=== PATIENT | female | born 1990 | race Caucasian/White ===

== ENCOUNTER 2023-10-03 11:37 | Emergency (ER) | payer MEDICAID, SELFPAY ==
[2023-10-03 12:15] VITALS: BP 106/69; PULSE 91; RESP 18; TEMP 36.4; O2SAT 98; BMI 24.3
--- NOTE | 2023-10-03 13:24 | ED_ITS ---
HPI - Headache 2 General: Chief Complaint: Headache Stated Complaint: headache, 14 wks preg Time Seen by Provider: 10/03/23 13:23 Source: patient Mode of arrival: ambulatory Limitations: no limitations History of Present Illness: Patient is a 33-year-old female who presents to the ED today with complaints of a headache. She states she has had a headache for approximately 24 hours. She has been treating with acetaminophen without relief. She is approximately 14 weeks . She has no complaints of nausea or vomiting. No visual changes. No recent fevers. She states her significant other whom she lives with has recently tested positive for COVID. He states he had a fairly significant headache with this illness as well. Patient denies abdominal pain. No urinary symptoms. MD elicited complaint: headache Onset (ago): day(s) Location: diffuse Quality & Timing: dull Exacerbating factors: none Relieving factors: nothing Context: close contacts with similar symptoms (significant other with COVID) Associated symptoms: Deny chest pain, fever(s), lightheadedness, malaise, nausea, rash, syncope or vomiting Treatments prior to arrival: acetaminophen Review of Systems 2 Const: Denies: fever(s), chills, body aches, fatigue or malaise Eyes: Denies: change in vision, blurry vision, photophobia, floaters or seeing flashes Card: Denies: chest pain, palpitations, irregular heart rhythm, lightheadedness, syncope or dyspnea on exertion Resp: Denies: dyspnea, productive cough or pain on inspiration GI: Denies: abdominal pain, nausea, vomiting, heartburn or diarrhea : Denies: dysuria Musc: Denies: neck pain, back pain or joint pain Skin/Breast: Denies: rash Neuro: Reports: headache(s); Denies: numbness in extremities, weakness in extremities, sensory changes or dizziness Physical Exam 2 Const: COMMON NORMALS: no acute distress, average body habitus, patient oriented x3, no limitations, healthy appearing, alert and well nourished G ENERAL APPEARANCE: cooperative ORIENTATION/CONSCIOUSNESS: Yes awake, Yes oriented to person, Yes oriented to place and Yes oriented to time HENMT: COMMON NORMALS: normocephalic, atraumatic, hearing grossly normal bilaterally, EAC's normal, TM's normal bilaterally, Normal external nose present, Normal nasal mucous membranes and turbinates present, moist oral mucous membranes and oropharynx normal HEAD & SCALP: normal to inspection, normocephalic and atraumatic FACE & SINUS: normal facial exam NOSE: Normal external nose present and Normal nasal mucous membranes and turbinates present EXTERNAL AUDITORY CANAL: EAC's normal TYMPANIC MEMBRANE: TM's normal bilaterally MOUTH: Normal oral and palatal mucosa present and lip normal T HROAT: posterior oropharynx normal Eye: GENERAL EYE: appearance normal, both eyes and all related structures Neck/C-Spine: COMMON NORMALS: full ROM, no lymphadenopathy, supple and no meningeal signs Chest: COMMONS NORMALS: normal inspection of the chest Resp: COMMON NORMALS: normal respiratory effort and clear to auscultation bilaterally AUSCULTATION: clear to auscultation bilaterally Cardio: COMMON NORMALS: regular rate and regular rhythm RATE: regular rate RHYTHM: regular rhythm : COMMON NORMALS: Yes no CVA tenderness BLADDER/KIDNEY EXAM: Yes no CVA tenderness Back/Pelvis: COMMON NORMALS: no CVA tenderness Extremity: GENERAL: Yes normal exam except as noted Neuro: ADRIANA COMA SCALE: document GCS findings Adriana coma scale eye opening: Spontaneous Adriana coma scale verbal response: Orientated [place] coma scale motor response: Obey commands Adriana coma scale total score: 15 COMMON NORMALS: patient oriented x3 SENSORIUM/ORIENTATION: Yes alert, Yes oriented to person, Yes oriented to place and Yes oriented to time MENINGEAL SIGNS: Y es no meningeal signs Skin: COMMON NORMALS: no rashes or lesions noted GENERAL SKIN EXAM: no rashes or lesions noted Course 2 Vital Signs: Vital signs: Vital Signs Temperature 97.6 F 10/03/23 12:15 Pulse Rate 90 10/03/23 15:39 Respiratory Rate 14 10/03/23 14:57 Blood Pressure 103/60 10/03/23 15:39 Pulse Oximetry 99 10/03/23 15:39 Oxygen Delivery Me thod Room Air 10/03/23 14:57 MDM - Headache Medical Decision Making Patient here with a complaint of a headache over the past day. She has had positive COVID exposure. COVID antigen obtained and pending. Blood work is unremarkable. She states her headache is improved after IV Benadryl and Reglan. She feels well to go home. We will reach out to patient if her COVID comes back positive. Lab Data I reviewed the patient's lab results. 10/03/23 13:46 10/03/23 13:46 Laboratory Results WBC 3.19 10^3/uL (3.29-11.43) L 10/03/23 13:46 RBC 4.38 10^6/uL (3.85-5.65) 10/03/23 13:46 Hgb 13.30 g/dL (11.27-16.99) 10/03/23 13:46 Hct 38.7 % (36-47) 10/03/23 13:46 MCV 88.4 fl (85-98) 10/03/23 13:46 MCH 30.4 pg (27-33) 10/03/23 13:46 MCHC 34.4 g/dL (30-55) 10/03/23 13:46 RDW 12.2 % (12.1-15.1) 10/03/23 13:46 Plt Count 155 10^3/cmm (157-399) L 10/03/23 13:46 MPV 10.6 fL (7.4-10.4) H 10/03/23 13:46 Neut % (Auto) 59.9 % 10/03/23 13:46 Lymph % (Auto) 24.8 % 10/03/23 13:46 [place] % (Auto) 14.4 % 10/03/23 13:46 Eos % (Auto) 0.3 % 10/03/23 13:46 Baso % (Auto) 0.3 % 10/03/23 13:46 Neut # (Auto) 1.91 10^3/uL (1.8-7.7) 10/03/23 13:46 Lymph # (Auto) 0.8 10^3/uL (0.8-4.8) 10/03/23 13:46 [place] # (Auto) 0.5 10^3/uL (0.2-0.9) 10/03/23 13:46 Eos # (Auto) 0.0 10^3/uL (0.0-0.8) 10/03/23 13:46 Baso # (Auto) 0.0 10^3/uL (0.0-0.1) 10/03/23 13:46 Nucleated RBC % (auto) 0 % 10/03/23 13:46 Nucleated RBCs # 0.0 /100WBC 10/03/23 13:46 Sodium 132 mmol/L (136-145) L 10/03/23 13:46 Potassium 3.6 mmol/L (3.5-5.1) 10/03/23 13:46 Chloride 99 mmol/L (98-107) 10/03/23 13:46 Carbon Dioxide 21 mmol/L (22-29) L 10/03/23 13:46 Anion Gap 15.6 (5-19) 10/03/23 13:46 BUN 6 mg/dL (6-20) 10/03/23 13:46 Creatinine 0.4 mg/dL (0.5-0.9) L 10/03/23 13:46 GFR Calculation 183.8 mL/min (90-130) H 10/03/23 13:46 Glucose 79 mg/dL (65-115) 10/03/23 13:46 Calculated Osmolality 271 mOsm/kg (285-295) L 10/03/23 13:46 Calcium 9.2 mg/dL (8.5-10.5) 10/03/23 13:46 Total Bilirubin 0.3 mg/dL (0.15-1.2) 10/03/23 13:46 AST 18 U/L (0-32) 10/03/23 13:46 ALT 11 U/L (0-33) 10/03/23 13:46 Alkaline Phosphatase 59 U/L (35-105) 10/03/23 13:46 Total Protein 7.1 g/dL (6.6-8.7) 10/03/23 13:46 Albumin 3.9 g/dL (3.5-5.2) 10/03/23 13:46 Globulin 3.2 g/dL (1.3-4.6) 10/03/23 13:46 No radiology studies performed this visit Discharge Plan Discharge Patient Disposition: Home Clinical Impression: Headache Qualifiers: Headache type: unspecified Headache chronicity pattern: acute headache I ntractability: not intractable Qualified Code(s): R51.9 - Headache, unspecified Condition: Stable Prescriptions: No Action No Known Home Medications Discharge Orders: Discharge ED (Routine); Ordered 10/03/23 Ordered By: Meli Monterroso Referrals: Nayeli Restrepo MD [Primary Care Provider] - Activity Restrictions/Additional Instructions: As we discussed I will contact you later today if your COVID result comes back positive. 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
[2023-10-03 13:53] LABS: Basophils % 0.3 %; Eosinophils % 0.3 %; Hematocrit 38.7 % (36-47); Lymphocytes # 0.8 10^3/uL (0.8-4.8); Lymphocytes % 24.8 %; Mean Corpuscular HGB Conc 34.4 g/dL (30-55); Mean Corpuscular Hemoglobin 30.4 pg (27-33); Mean Corpuscular Volume 88.4 fl (85-98); Mean Platelet Volume 10.6 fL (7.4-10.4); Monocytes # 0.5 10^3/uL (0.2-0.9); Monocytes % 14.4 %; Neutrophils # 1.91 10^3/uL (1.8-7.7); Neutrophils % 59.9 %; Nucleated Red Blood Cells % 0 %; Platelet Count 155 10^3/cmm (157-399); Red Blood Count 4.38 10^6/uL (3.85-5.65); Red Cell Distribution Width 12.2 % (12.1-15.1); White Blood Count 3.19 10^3/uL (3.29-11.43)
[2023-10-03 14:20] LABS: Alanine Aminotransferase 11 U/L (0-33); Albumin Level 3.9 g/dL (3.5-5.2); Alkaline Phosphatase 59 U/L (35-105); Anion Gap 15.6 (5-19); Aspartate Amino Transferase 18 U/L (0-32); Blood Urea Nitrogen 6 mg/dL (6-20); Calcium 9.2 mg/dL (8.5-10.5); Carbon Dioxide 21 mmol/L (22-29); Chloride 99 mmol/L (98-107); Globulin 3.2 g/dL (1.3-4.6); Glomerular Filtration Rate 183.8 mL/min (90-130); Glucose 79 mg/dL (65-115); Osmolality Calculated 271 mOsm/kg (285-295); Potassium 3.6 mmol/L (3.5-5.1); Sodium 132 mmol/L (136-145); Total Bilirubin 0.3 mg/dL (0.15-1.2); Total Protein 7.1 g/dL (6.6-8.7)
[2023-10-03] MEDS: metoclopramide 5 mg/mL SDV 2 mL 10 MG IVP (14:56)
[2023-10-03] MEDS: diphenhydrAMINE 50 mg/mL SDV 1mL 25 MG IVP (14:56)
[2023-10-03 14:57] VITALS: BP 116/72; PULSE 90; RESP 14; O2SAT 98
[2023-10-03 15:39] VITALS: BP 103/60; PULSE 90; O2SAT 99
[2023-10-03 16:01] LABS: SARS Covid-2 Antigen negative (Negative)
== END 2023-10-03 15:40 | disposition home or self-care (01) ==
PROVIDERS: Emergency Provider Physician Assistant; PCP Family Medicine
DX: R51.9 Headache, unspecified (principal); Z11.52 Encounter for screening for COVID-19
CPT/HCPCS: 36415; 80053; 85025; 87426; 96374; 96375; 99284; J1200; J2765

== ENCOUNTER 2024-03-06 13:53 | Outpatient (CLI) | payer BC, MEDICAID, SELFPAY ==
[2024-03-06] VITALS (13 sets, daily range): BP systolic 110–130; BP diastolic 62–74; PULSE 75–103; BMI 29.2
[2024-03-06] MEDS: terbutaline 1 mg/mL INJ 0.25 MG SUBCUT (16:49)
--- NOTE | 2024-03-06 17:05 | PM.SDS ---
Short Stay Summary Providers Date of Admit/Discharge: 03/10/24 Attending Provider: Nayeli Restrepo MD Primary Care Provider: Nayeli Restrepo MD Chief Complaint: contractions HPI History of Present Illness Jacquelin Amaya is a 33 year old female at 36-week day gestation who presented to labor and delivery complaining of contractions. She states she has been mika since last night. The contractions are mostly in her back. She also has some continuous lower back pain. Upon admission she denied any bleeding or loss of fluid. She had good movement. Home Meds/Allergies Home Medications and Allergies Home Medications Medication Instructions Recorded Confirmed Type No Known Home Medications 10/03/23 03/06/24 History Allergies Allergy/AdvReac Type Severity Reaction Status Date / Time No Known Allergies Allergy Unverified 10/03/23 14:46 PFSH Acute Female Reproductive History: : 5 Vitals/I&O/Wt Last Vital Signs Pulse 78 03/06/24 16:48 BP 115/66 03/06/24 16:48 Weight last 48 hrs Weight 75.07 kg Physical Exam Narrative: Alert and oriented, resting comfortable in bed, abdomen gravid and nontender, no active vaginal bleeding, scant amount dark red blood in the vaginal vault and mild amount on the check underlying the patient. Cervix 2 cm 60% effaced very anterior and soft. Hospital Course Hospital Course The patient was monitored on OB. heart tones were reassuring with moderate variability positive accelerations no decelerations. Patient was found to be mika every 2 to 5 minutes. She did not make any cervical telephone exchange operator the course of 2.5 hours however when she had her vaginal checks she had mild to moderate bloody show. Nursing was concerned so I came to evaluate the patient. She had no active bleeding upon my examination. There was a small amount of dark red blood in the vaginal vault. Her cervix was still 2 cm 60% effaced and -2 station very anterior presentation. head was vertex and ballotable. There is no bleeding or fluid return with my examination. The patient had started to feel the contractions become more intense so she was given 1 dose of terbutaline to try and calm them down. We have sent a urine for UA. She just recently finished about 30 ounces of water. The patient's contractions spaced out significantly and became less strong after the terbutaline. She did not have any further bright red bleeding. She was discharged home in stable condition with early labor precautions SSS Data Data Completed and Pending: Pending at discharge Category Date Time Status UASCOPE [Urinalys is and Microscopic ] Stat Lab 03/06/24 17:05 Ordered Discharge Plan Discharge Patient Disposition: Home Prescriptions: No Action No Known Home Medications Discharge Orders: Discharge Order (Routine); Ordered 03/06/24 Ordered By: Nayeli Restrepo Diet: Usual diet Activity: Increase activity as tolerated Discharge Date/Time: 03/06/24 18:35 Attestations Medical Necessity Statement*: labor management Time Spent in Patient Care*: greater than 30 min Quality Metrics Clinical Quality Measures: [ No reported AMI, CVA or VTE this stay] Coding Level of Care Code Acute Code for Chg Fwd
[2024-03-06 17:42] LABS: Bilirubin Urine Neg (Negative); Blood Urine Neg (Negative); Glucose Urine UA Norm (Normal); Ketones Urine Negative (Negative); Leukocyte Esterase Urine 2+ (Negative); Nitrate Urine Negative (Negative); Protein Urine Neg (Negative); Specific Gravity, Urine 1.015 (1.005-1.030); Urine Appearance Cloudy (CLEAR); Urine Color Yellow (Yellow); Urobilinogen Urine 1 mg/dL (Negative); pH Urine 6.5 (5-7)
[2024-03-06 17:45] LABS: Add Urine Culture? Yes; Bacteria Urine 2+ /hpf; Mucus Urine 3+ /hpf; RBC Urine 0-4 /hpf (0-2); Squamous Epithelial Cell Urine 15-25 /hpf (0-5)
[2024-03-06] MEDS: cefTRIAXone 1,000 MG in lidocaine 1% 2.1 ML 1 MG IM (18:28)
== END 2024-03-06 18:35 | disposition home or self-care (01) ==
LOC: OPOB 13:54 → OBGYN 13:55
PROVIDERS: PCP Family Medicine; Visit Provider Family Medicine
DX: O47.03 False labor before 37 completed weeks of gestation, third trimester (principal); Z3A.36 36 weeks gestation of pregnancy
CPT/HCPCS: 59025; 81001; 87086; 96372; 99211; J0696; J3105

== ENCOUNTER 2024-03-18 20:49 | Outpatient (CLI) | payer BC, MEDICAID, SELFPAY ==
[2024-03-18] VITALS (8 sets, daily range): BP systolic 108–125; BP diastolic 67–75; PULSE 83–96; TEMP 35.2–35.5; BMI 29.9
== END 2024-03-18 22:37 | disposition home or self-care (01) ==
LOC: OPOB 20:49 → OBGYN 20:50
PROVIDERS: PCP Family Medicine; Visit Provider Family Medicine
DX: O26.899 Other specified pregnancy related conditions, unspecified trimester (principal); Z3A.00 Weeks of gestation of pregnancy not specified; R10.9 Unspecified abdominal pain
CPT/HCPCS: 59025; 99211

== ENCOUNTER 2024-03-26 09:51 | Inpatient (IN) | payer BC, MEDICAID, SELFPAY ==
[2024-03-26] VITALS (111 sets, daily range): BP systolic 89–151; BP diastolic 46–93; PULSE 67–200; TEMP 36.1; O2SAT 82–100; BMI 30.1
[2024-03-26 09:17] LABS: Basophils % 0.3 %; Eosinophils # 0.1 10^3/uL (0.0-0.8); Hematocrit 32.3 % (36-47); Lymphocytes % 33.3 %; Mean Corpuscular HGB Conc 32.2 g/dL (30-55); Mean Corpuscular Hemoglobin 25.4 pg (27-33); Mean Corpuscular Volume 78.8 fl (85-98); Mean Platelet Volume 11.8 fL (7.4-10.4); Monocytes # 0.5 10^3/uL (0.2-0.9); Monocytes % 8.7 %; Neutrophils # 3.38 10^3/uL (1.8-7.7); Neutrophils % 55.2 %; Nucleated Red Blood Cells % 0 %; Platelet Count 141 10^3/cmm (157-399); Red Cell Distribution Width 13.2 % (12.1-15.1); White Blood Count 6.12 10^3/uL (3.29-11.43)
[2024-03-26] MEDS: dextrose 5%-lactated ringers 1,000 ML 125 ML IV ×2 (09:30→17:33)
[2024-03-26] MEDS: oxytocin 30 UNIT/500 ML BAG IV (09:30)
[2024-03-26 11:18] LABS: Amphetamines Screen Urine Negative (Negative); Barbiturates Screen Urine Negative (Negative); Benzodiazepines Screen Urine Negative (Negative); Cocaine Screen Urine Negative (Negative); Opiate Screen Urine Negative (Negative); PCP Screen Urine Negative (Negative); THC Screen Urine Negative (Negative)
[2024-03-26] MEDS: lactated ringers 1,000 ML 999 ML IV (16:14)
--- NOTE | 2024-03-26 16:18 | PM.OPHPUD ---
Labor & Delivery H&P Update Date of Procedure: March 26, 2024 Date H&P Performed: 04/18/24 Admission Diagnosis: IUP at 39 weeks gestation Desired permanent surgical sterilization Primary indication for procedure: Patient requested induction Planned procedure: Induction of labor and delivery with bilateral tubal ligation
--- NOTE | 2024-03-26 17:17 | P.ANESASSM_ITS ---
Pre-Anesthetic Assessment Height/Weight: Height 1.6 m Weight 77.111 kg Temp Pulse BP O2 Del Method 97.0 F L 100 113/71 Room Air 03/26/24 09:06 03/26/24 17:05 03/26/24 17:05 03/26/24 08:49 Preop Diagnosis: labor pains epidural Was Beta Daisy taken within 24 hours: N/A Was Clonidine taken within 24 hours: N/A Exam alert, oriented x 3, clear to auscultation bilaterally and regular rate & rhythm Airway Submandibular: within normal limits Cervical ROM: within normal limits Mallampati: Class II Dentition: full Pulmonary None reported CV/HEM None reported None reported Hepatic None reported GI Gastroesophageal Reflux Disease Metabolic None reported Musc/skel None reported Neuropsych None reported Anesthetic Plan ASA status: 2 Anesthesia: Regional (specify below) Risk of > 500 ml blood loss (7ml/kg in children): No Medications/Allergies Home Medications Medication Instructions Recorded Confirmed Last Taken Type No Known Home Medications 10/03/23 03/26/24 Unknown History Allergies Allergy/AdvReac Type Severity Reaction Status Date / Time No Known Allergies Allergy Unverified 10/03/23 14:46 Current Medications Generic Name Dose Route Start Last Admin Trade Name Freq PRN Reason Stop Dose Admin Dextrose/Lactated Ringer's 1,000 mls @ 125 mls/hr 03/26/24 09:00 03/26/24 16:14 Dextrose 5%-Lactated Ringers IV 0 mls/hr .Q8H GIGI Infusion Oxytocin 30 unit in 500 mls @ 1 mls/hr 03/26/24 09:00 03/26/24 14:37 Pitocin IV 17 milliunit/min .Q24H GIGI 17 mls/hr Titration Protocol 1 MILLIUNIT/MIN Lactated Ringer's 1,000 mls @ 999 mls/hr 03/26/24 15:24 03/26/24 16:14 Lactated Ringers IV 999 mls/hr .Q1H1M PRN Administration See label comments PFSH Anesthesia Female Reproductive History : 5 Data Anesthesia 03/26/24 08:35 Short CBC 03/26/24 Range/Units 08:35 WBC 6.12 (3.29-11.43) 10^3/uL Hgb 10.40 L (11.27-16.99) g/dL Hct 32.3 L (36-47) % MCV 78.8 L (85-98) fl Plt Count 141 L (157-399) 10^3/cmm Neut % (Auto) 55.2 % Neut # (Auto) 3.38 (1.8-7.7) 10^3/uL Blood Bank 03/26/24 08:35 Blood Type A Positive Rho(D) Type Rh positive Antibody Screen Negative Cardiac Studies: 2 No Data to Display
[2024-03-26] MEDS: ROPivacaine syringe 100 MG/50 ML SYRINGE 10 MG EPIDURAL ×2 (17:34→20:44)
--- NOTE | 2024-03-26 17:39 | P.ANES_ITS ---
Anesthesia Procedures Procedure/Date: 03/26/24 epidural Procedure Narrative: epidural complete, bolus given, epidural pump initiated with LIBRARY MEDIA SPECIALIST education given, vitals taken during procedure and satisfactory throughout, patient admits to decrease pain, report of procedure to OB RN Epidural: Time Out Performed: Yes Consents Signed: Procedure Consent Consent: requested by attending/covering physician, from patient, risks and benefits reviewed and patient agrees to proceed Lumbar Level: L3-L4 Ep idural position: sitting Epidural procedure: sterile prep of area, 1% lidocaine to numb the area (3 mL), 18 g needle, negative for paresthesia passed, neg for paresthesia, test dose given, 1.5% xylocaine 1:200k epi (5 mL), 0.2% Ropivacaine bolus ml (5 mL), placed PCEA, no systemic response, sterile dressing applied, L.U.D. no apparent complications and 0.2% Ropiavacaine @ mls/hr (13 mL/hr)
[2024-03-26] MEDS: miSOPROStol 200 mcg Tablet 800 MCG PR (21:20)
[2024-03-26] MEDS: oxytocin 30 UNIT/500 ML BAG 600 UNIT IV (21:49)
[2024-03-27] VITALS (17 sets, daily range): BP systolic 94–113; BP diastolic 57–69; PULSE 64–99; RESP 16–20; TEMP 36.2–36.6; O2SAT 95–99
--- NOTE | 2024-03-27 08:15 | ANE.PACU2 ---
Inpatient post-anesthesia follow up: Airway intact: Yes Vital signs: Temperature 98.0 F Pulse Rate 82 Respiratory Rate 16 Blood Pressure 99/72 Pulse Oximetry 99 Oxygen Delivery Me thod Room Air Oxygen Flow Rate Fraction of Inspir ed Oxygen Hydration adequate: Yes Nausea and vomiting: No Pain level: 1 Mental status: Baseline Epidural Start/End: Epidural Start Date: 03/26/24 Epidural Start Time: 17:25 Epidural End Date: 03/26/24 Epidural End Time: 21:36
--- NOTE | 2024-03-27 10:41 | P.HP_ITS ---
Providers/Chief Complaint 2 Admitting Physician: Nayeli Restrepo MD Primary Care Provider: Nayeli Restrepo MD Chief Complaint: IOL History of Present Illness Jacquelin Amaya is a 33 year old female who delivered via last evening. She wishes to undergo permanent surgical sterilization. Review of Systems 2 Narrative: no fever, chills, no contractions. 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 Vitals/I&O/Wt Last Vital Signs Temp 97.9 F 03/27/24 07:50 Pulse 93 03/27/24 07:50 Resp 16 03/27/24 07:50 BP 106/67 03/27/24 07:50 Pulse Ox 92 03/26/24 21:14 O2 Del Method Room Air 03/26/24 08:49 03/26/24 03/27/24 03/27/24 22:59 06:59 14:59 Intake Total 1126.000 / 1180.183 Balance 1126.000 / 1180.183 Weight last 48 hrs Weight 77.111 kg Physical Exam 2 Narrative: A&O, RRR, CTA bilaterally, abdomen soft, fundus firm and U-2. trace edema. Urinary Catheter Management: Mcduffie: Cath Placed During This Visit: yes, but has since been removed by the nurse Reason for Continuing Indwelling Catheter: Decision to DC Catheter Urinary Catheter Date of Insertion: 03/26/24 Urinary Catheter Time of Insertion: 18:17 Date Urinary Catheter Removed: 03/26/24 Time Urinary Catheter Discontinued: 21:00 Data 03/27/24 09:39 A&P Assessment and plan (1) (normal spontaneous vaginal delivery): routine PP care (2) Sterilization consult: scheduled for BTL today. Attestations 2 Medical Necessity Statement*: routine PP care Coding Level of Care Code Acute Code for Chg Fwd Diagnoses (normal spontaneous vaginal delivery) O80 Sterilization consult Z30.09
[2024-03-27] MEDS: lactated ringers 1,000 ML 999 ML IV (11:06)
--- NOTE | 2024-03-27 11:51 | P.ANESASSM_ITS ---
Pre-Anesthetic Assessment Height/Weight: Height 1.6 m Weight 77.111 kg Temp Pulse Resp BP Pulse Ox O2 Del Method 97.2 F L 81 17 108/69 99 Room Air 03/27/24 11:39 03/27/24 11:39 03/27/24 11:39 03/27/24 11:39 03/27/24 11:39 03/27/24 11:39 Preop Diagnosis: labor pains Operation Date: 03/27/24 12:00 Proposed Procedures p Bilateral Tubal Ligation(Bilateral) - Nayeli Restrepo MD Operation Date: 03/27/24 12:00 Proposed Procedures p Post Bilateral Tubal Ligation(Bilateral) - Nayeli Restrepo MD Familial anesthetic complications: None Was Beta Daisy taken within 24 hours: N/A Was Clonidine taken within 24 hours: N/A Last intake: Intake Last Liquid Date 03/26/24 Last Liquid Time 22:30 Last Solid Date 03/26/24 Last Solid Time 22:35 Social No alcohol and No tobacco Exam alert, oriented x 3, clear to auscultation bilaterally and regular rate & rhythm Airway Mallampati: Class I Dentition: full Anesthetic Plan ASA status: 1 Anesthesia: General Other: RSI Risk of > 500 ml blood loss (7ml/kg in children): No Medications/Allergies Home Medications Medication Instructions Recorded Confirmed Last Taken Type No Known Home Medications 10/03/23 03/26/24 Unknown History Allergies Allergy/AdvReac Type Severity Reaction Status Date / Time No Known Allergies Allergy Unverified 10/03/23 14:46 Current Medications Generic Name Dose Route Start Last Admin Trade Name [place] PRN Reason Stop Dose Admin Oxytocin 30 unit in 500 mls @ 600 mls/hr 03/26/24 08:48 03/26/24 21:49 Pitocin IV 600 mls/hr .Q50M PRN 600 mls/hr After delivery of infant Administration Protocol Dextrose/Lactated Ringer's 1,000 mls @ 125 mls/hr 03/26/24 09:00 03/26/24 17:33 Dextrose 5%-Lactated Ringers IV 125 mls/hr .Q8H GIGI Administration Oxytocin 30 unit in 500 mls @ 1 mls/hr 03/26/24 09:00 03/26/24 21:25 Pitocin IV 999 milliunit/min .Q24H GIGI 999 mls/hr Titration Protocol 1 MILLIUNIT/MIN Lactated Ringer's 1,000 mls @ 999 mls/hr 03/26/24 15:24 03/27/24 11:06 Lactated Ringers IV 999 mls/hr .Q1H1M PRN Administration See label comments Ropivacaine 100 mg in 50 mls @ 10 mls/hr 03/26/24 15:30 03/26/24 21:21 Naropin Syringe EPIDURAL Infused .Q5H GIGI Infusion PFSH Anesthesia Female Reproductive History : 5 Data Anesthesia 03/27/24 09:39 Short CBC 03/26/24 03/27/24 Range/Units 08:35 09:39 WBC 6.12 (3.29-11.43) 10^3/uL Hgb 10.40 L 9.30 L (11.27-16.99) g/dL Hct 32.3 L 32.0 L (36-47) % MCV 78.8 L (85-98) fl Plt Count 141 L (157-399) 10^3/cmm Neut % (Auto) 55.2 % Neut # (Auto) 3.38 (1.8-7.7) 10^3/uL Blood Bank 03/26/24 08:35 Blood Type A Positive Rho(D) Type Rh positive Antibody Screen Negative Cardiac Studies: 2 No Data to Display
[2024-03-27] MEDS: lidocaine-epi 2% PF 1:200,000 20 mL SDV XX (12:26)
[2024-03-27] MEDS: fentaNYL 50 mcg/mL INJ 2mL IVP (13:08)
--- NOTE | 2024-03-27 13:32 | ANE.PACU2 ---
Inpatient post-anesthesia follow up: Airway intact: Yes Vital signs: Temperature 97.9 F Pulse Rate 79 Respiratory Rate 17 Blood Pressure 110/69 Pulse Oximetry 98 Oxygen Delivery Me thod Room Air Oxygen Flow Rate Fraction of Inspir ed Oxygen Hydration adequate: Yes Nausea and vomiting: No Pain level: 1 Mental status: Baseline
--- NOTE | 2024-03-27 13:53 | PC.NURSE ---
PATIENT BACK FROM OR VIA GURNEY, MOVED TO BED WITHOUT DIFFICULTY. HAS CALL LIGHT WITH IN EASY REACH.
[2024-03-27] MEDS: HYDROcodone-acetaminophen 5-325 mg Tablet PO (14:13)
[2024-03-27] MEDS: ibuprofen 800 mg tablet PO ×2 (14:13→20:30)
--- NOTE | 2024-03-27 17:03 | PM.DELIVERY ---
Delivery Note: Date of delivery: March 26, 2024 Estimated blood loss (mL): 350 Delivery: This is a 33-year-old G5, P4 at 39 weeks 0 days gestation who was here for an elective induction. Her cervix was favorable so she was started on Pitocin. She underwent artificial rupture of membranes with a copious amount of clear fluid. She was GBS negative. Rupture of membranes was approximately 4 hours prior to delivery. She had a normal spontaneous vaginal delivery of a viable female infant weight 3170 g, 7 pounds 0 ounces, Apgars 8 and 9 over an intact perineum. The infant was suctioned at delivery and placed on the mother's chest. The cord was clamped and cut. The placenta was delivered grossly intact and normal to inspection. There were no vaginal lacerations. Mother had a steady stream of vaginal bleeding after delivery and was given 800 mcg of Cytotec rectally. Mother and infant were doing well after delivery. Coding Level of Care Code Acute Code for Chg [place]
--- NOTE | 2024-03-27 17:08 | PM.OP ---
Operative Report Date of procedure: March 27, 2024 Pre-op diagnosis: Desired permanent surgical sterilization Procedure done: bilateral tubal ligation Specimens removed/disposition: Segments of right and left fallopian tubes Pathology: Segments of right and left fallopian tubes Surgeon: Nayeli Restrepo MD Estimated blood loss (mL): 2 IV fluids (mL): 700 Complications: None Procedure: After informed consent the patient was taken to the OR where general anesthesia was administered. She was prepped and draped in normal sterile fashion in dorsal supine position. A curvilinear infraumbilical incision was made sharply using a 10 blade. The incision was then carried through bluntly to the fascia using a hemostat. The fascia was grasped with Allis clamps and entered sharply using the Metzenbaums. The incision site was manually stretched. The left fallopian tube was then grasped with a [place] and brought into the operative field. Fimbria were identified. A distal portion of the tube was ligated and excised. A portion of the tube was sent to pathology. Tubal ostia were visible. The cut portions of the tube were coagulated using the Bovie and then returned to the abdomen. The right fallopian tube was then grasped with a [place] and brought into the operative field. Fimbria were identified. A distal portion of the tube was ligated and excised. Segment of the tube was sent to pathology. Cut portions of the tube were coagulated using the Bovie. The cut portions of the tube were then returned to the abdomen. The peritoneum and fascia was then reapproximated using a 0 Vicryl in a running fashion. The skin was then reapproximated using 4-0 Vicryl in a running fashion. 15 mL of 1% lidocaine was injected circumferentially around the incision site. Patient was awakened in the OR and went to recovery in good condition.
[2024-03-27] MEDS: docusate sodium 100 mg Capsule PO (20:30)
[2024-03-28 05:22] VITALS: BP 91/48; PULSE 75; RESP 16; TEMP 36.7; O2SAT 98
[2024-03-28] MEDS: PRENATAL VIT NO.130/IRON/FOLIC 1 EACH TABLET PO (09:49)
[2024-03-28] MEDS: docusate sodium 100 mg Capsule PO (09:49)
[2024-03-28] MEDS: ibuprofen 800 mg tablet PO (09:50)
[2024-03-28 11:00] VITALS: BP 95/56; PULSE 78; RESP 16; TEMP 36.7; O2SAT 99
--- NOTE | 2024-03-28 11:48 | PM.DCS ---
Discharge Providers Date of Admission: 03/26/24 09:51 Date of Discharge: March 28, 2024 Attending Provider at Admission: Nayeli Restrepo MD Attending Provider at Discharge: Nayeli Restrepo MD Primary Care Provider: Nayeli Restrepo MD Diagnoses at Discharge Discharge Diagnosis (1) (normal spontaneous vaginal delivery): Status: Acute (2) Sterilization consult: Status: Acute Reason for Visit Reason for Visit: IOL Hospital Course Hospital Course This is a 33-year-old G5 now P5 who was admitted for an elective induction. She had a normal spontaneous vaginal delivery of a viable female infant. On day #1 she underwent a bilateral tubal ligation. She is now postop day #1 and is doing well. She is ambulating, tolerating a regular diet, has minimal abdominal discomfort and is comfortable with discharge home. Physical Exam Narrative: Alert and oriented, sitting up in bed with the infant, heart regular rate and rhythm, lungs clear to auscultation bilaterally, abdomen is soft with appropriate postoperative tenderness, incision is clean dry and intact, extremities have 1+ edema but no calf tenderness Urinary Catheter Management: Mcduffie: Cath Placed During This Visit: yes, but has since been removed by the nurse Reason for Continuing Indwelling Catheter: Decision to DC Catheter Urinary Catheter Date of Insertion: 03/26/24 Urinary Catheter Time of Insertion: 18:17 Date Urinary Catheter Removed: 03/26/24 Time Urinary Catheter Discontinued: 21:00 Discharge Data Studies Completed and Pending Pending at discharge Category Date Time Status Pathology: Surgical [PTH] Routine Pth 03/27/24 12:45 Received Laboratory Results WBC 6.12 10^3/uL (3.29-11.43) 03/26/24 08:35 RBC 4.10 10^6/uL (3.85-5.65) 03/26/24 08:35 Hgb 9.30 g/dL (11.27-16.99) L 03/27/24 09:39 Hct 32.0 % (36-47) L 03/27/24 09:39 MCV 78.8 fl (85-98) L 03/26/24 08:35 MCH 25.4 pg (27-33) L 03/26/24 08:35 MCHC 32.2 g/dL (30-55) 03/26/24 08:35 RDW 13.2 % (12.1-15.1) 03/26/24 08:35 Plt Count 141 10^3/cmm (157-399) L 03/26/24 08:35 MPV 11.8 fL (7.4-10.4) H 03/26/24 08:35 Neut % (Auto) 55.2 % 03/26/24 08:35 Lymph % (Auto) 33.3 % 03/26/24 08:35 [place] % (Auto) 8.7 % 03/26/24 08:35 Eos % (Auto) 2.0 % 03/26/24 08:35 Baso % (Auto) 0.3 % 03/26/24 08:35 Neut # (Auto) 3.38 10^3/uL (1.8-7.7) 03/26/24 08:35 Lymph # (Auto) 2.0 10^3/uL (0.8-4.8) 03/26/24 08:35 [place] # (Auto) 0.5 10^3/uL (0.2-0.9) 03/26/24 08:35 Eos # (Auto) 0.1 10^3/uL (0.0-0.8) 03/26/24 08:35 Baso # (Auto) 0.0 10^3/uL (0.0-0.1) 03/26/24 08:35 Nucleated RBC % (auto) 0 % 03/26/24 08:35 Nucleated RBCs # 0.0 /100WBC 03/26/24 08:35 Urine Opiates Screen Negative ng/mL (Negative) 03/26/24 10:52 Ur Barbiturates Screen Negative ng/mL (Negative) 03/26/24 10:52 Ur Phencyclidine Scrn Negative ng/mL (Negative) 03/26/24 10:52 Ur Amphetamines Screen Negative ng/mL (Negative) 03/26/24 10:52 U Benzodiazepines Scrn Negative ng/mL (Negative) 03/26/24 10:52 Urine Cocaine Screen Negative ng/mL (Negative) 03/26/24 10:52 U Marijuana (THC) Screen Negative ng/mL (Negative) 03/26/24 10:52 Blood Type A Positive 03/26/24 08:35 Rho(D) Type Rh positive 03/26/24 08:35 Antibody Screen Negative 03/26/24 08:35 Vitals Last Vital Signs Temp 98.1 F 03/28/24 11:00 Pulse 78 03/28/24 11:00 Resp 16 03/28/24 11:00 BP 95/56 03/28/24 11:00 Pulse Ox 99 03/28/24 11:00 O2 Del Method Room Air 03/28/24 11:00 Discharge Plan Discharge Patient Disposition: Home Condition: Stable Prescriptions: No Action No Known Home Medications Discharge Orders: Discharge Order (Routine); Ordered 03/28/24 Ordered By: Nayeli Restrepo Referrals: Nayeli Restrepo MD [Primary Care Provider] - 4-7 days Discharge Diet: Usual diet Discharge Activity: Limit activity as instructed Patient Instructions: Depression (DC), Opioid Safety (GEN), Preeclampsia and Eclampsia After Delivery (GEN), Tubal Ligation (DC), Hemorrhage (DC), OB Discharge Report, OB Food/Drug Interaction Guide, OB Care at Home, Opioid Safety, OB Vaginal Deliveries, Abnormal Bleeding Activity Restrictions/Additional Instructions: Nothing per vagina for 6 weeks. No lifting greater than 10 pounds for 2 weeks. Keep incision clean and dry. Discharge Attestations Time Spent in Discharge Care*: less than 30 min Quality Metrics Clinical Quality Measures [ No reported AMI, CVA or VTE this stay] Coding Level of Care Code Acute Code for Chg Fwd Diagnoses (normal spontaneous vaginal delivery) O80 Sterilization consult Z30.09
[2024-03-28 13:20] VITALS: BP 99/72; PULSE 82; RESP 16; TEMP 36.7; O2SAT 99
== END 2024-03-28 13:20 | disposition home or self-care (01) | DRG 798 ==
LOC: OPOB 09:51 → OBGYN 09:51
PROVIDERS: Admitting Provider Family Medicine; PCP Family Medicine; Visit Provider Family Medicine
PROC: 0UB70ZZ Excision of Bilateral Fallopian Tubes, Open Approach (ICD-10-PCS; CPT 58605; principal; 2024-03-27 12:00)
DX: O80 Encounter for full-term uncomplicated delivery (principal); Z37.0 Single live birth; Z30.2 Encounter for sterilization; Z3A.39 39 weeks gestation of pregnancy
CPT/HCPCS: 36415; 51702; 59025; 59409; 80306; 85014; 85018; 85025; 86850; 86900; 88302; 96374; J1100; J1885; J2405; J2590; J2710; J2795; J3010; J3490; J7120; J7121

== ENCOUNTER 2024-08-26 16:36 | Emergency (ER) | payer BC, MEDICAID, SELFPAY ==
--- NOTE | 2024-08-26 16:37 | XRR_ITS ---
PROCEDURE INFORMATION: Exam: XR Left Foot Exam date and time: 08/26/2024 4:49 PM Age: 34 years old Clinical indication: Swelling, leg or foot; Patient HX: Left foot with bruising and swelling. ; Additional info: Injury TECHNIQUE: Imaging protocol: Radiologic exam of the left foot. Views: 3 or more views. COMPARISON: CR (LOW EXM, ) 08/26/2024 4:49 PM FINDINGS: Bones/joints: Normal. Soft tissues: Normal. XR/XR foot LT min 3V* [id number] IMPRESSION: No acute findings.
--- NOTE | 2024-08-26 16:37 | XRR_ITS ---
PROCEDURE INFORMATION: Exam: XR Left Ankle Exam date and time: 08/26/2024 4:49 PM Age: 34 years old Clinical indication: Swelling, leg or foot; Patient HX: Left foot with bruising and swelling. ; Additional info: Injury TECHNIQUE: Imaging protocol: Radiologic exam of the left ankle. Views: 3 or more views. COMPARISON: CR XR foot LT min 3V* [id number] 08/26/2024 4:49 PM FINDINGS: Bones/joints: Normal. Soft tissues: Normal. XR/XR ankle LT min 3V* [id number] IMPRESSION: No acute findings.
[2024-08-26 16:39] VITALS: BP 118/75; PULSE 84; RESP 17; TEMP 36.4; O2SAT 100; BMI 27.9
--- NOTE | 2024-08-26 19:11 | W.ED.EXTPRO ---
HPI - Extremity Problem General: Chief complaint: Extremity Injury, Lower Stated complaint: left foot injury Time Seen by Provider: 08/26/24 18:54 History of Present Illness: 34-year-old female reports waking up this morning and having redness and tenderness to the first metatarsal MTP joint of the left foot. Patient reports no prior episodes. Patient reports area is tender to touch. Mild swelling is noted. No chronic medical problems reported. Patient did endorse the use of alcohol last night. Related Data Previous Rx's Medication Instructions Recorded diclofenac sodium 75 mg 75 mg PO BID #20 tabs 08/26/24 tablet,delayed release prednisone 20 mg tablet 20 mg PO DAILY 5 days #5 tabs 08/26/24 Allergies Allergy/AdvReac Type Severity Reaction Status Date / Time No Known Allergies Allergy Verified 08/26/24 16:43 Review of Systems General: Reports: 10 or more systems reviewed and unremarkable except in HPI and below Physical Exam Const: COMMON NORMALS: alert HENMT: COMMON NORMALS: normocephalic HEAD & SCALP: normocephalic Neck/C-Spine: COMMON NORMALS: full ROM Resp: COMMON NORMALS: normal respiratory effort Cardio: COMMON NORMALS: regular rate RATE: regular rate Back/Pelvis: COMMON NORMALS: thoracic and lumbar spine normal to inspection Extremity: LEFT LOWER EXTREMITY: Yes foot & digits (Mild redness and swelling of the joint first MTP) Neuro: SENSORIUM/ORIENTATION: Yes alert Skin: COMMON NORMALS: turgor normal GENERAL SKIN EXAM: turgor normal Course Vital Signs: Vital signs: Vital Signs Temperature 97.6 F 08/26/24 16:39 Pulse Rate 84 08/26/24 16:39 Respiratory Rate 17 08/26/24 16:39 Blood Pressure 118/75 08/26/24 16:39 Pulse Oximetry 100 08/26/24 16:39 Oxygen Delivery Me thod Room Air 08/26/24 16:39 MDM - Extremity (Nontraumatic) Medical Decision Making Patient comes in today for swelling and tenderness to the first MTP joint of the left foot. Patient reports normal history of injury. Patient reports no prior episodes. Patient does endorse drinking last night. Differential diagnosis includes but not limited to gout, osteoarthritis, sprain, fracture, cellulitis. X-ray of the foot and ankle are negative for injury. Believe patient was likely has gout. This is probably aggravated by her alcohol use. Patient was given a dose of steroid and Toradol in the ER. Patient be continued on diclofenac and prednisone at home. Patient reported understanding. Lab Data Radiology Impressions Ankle X-Ray 08/26/24 16:37 IMPRESSION: No acute findings. Foot X-Ray 08/26/24 16:37 IMPRESSION: No acute findings. All radiology interpretation(s) finalized by discharge Discharge Plan Discharge Patient Disposition: Home Clinical Impression: Acute gout involving toe of left foot Qualifiers: Gout etiology: unspecified cause Qualified Code(s): M10.9 - Gout, unspecified Condition: Stable Prescriptions: New prednisone 20 mg tablet 20 mg PO DAILY 5 Days Qty: 5 0RF diclofenac sodium 75 mg tablet,delayed release (DR/EC) 75 mg PO BID Qty: 20 0RF Discharge Orders: Discharge ED (Routine); Ordered 08/26/24 Ordered By: Kee Arriaza Referrals: Nayeli Restrepo MD [Primary Care Provider] - Discharge Diet: Usual diet Discharge Activity: Increase activity as tolerated Patient Instructions: Low Purine Diet (ED), Gout (ED) Activity Restrictions/Additional Instructions: Home and rest. Activity as tolerated. Use crutches until he can bear weight comfortably on the foot. Use diclofenac 75 mg 1 tablet twice a day for pain and inflammation. Take prednisone 20 mg daily for inflammation. Follow-up with primary care in 3 to 5 days for recheck. Return to ER for new concerns or worsening symptoms such as fever greater than 101, inability to hold fluids down, increasing redness and swelling of the leg. 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
[2024-08-26 19:30] VITALS: BP 122/78; PULSE 80; RESP 16; O2SAT 100
[2024-08-26] MEDS: dexamethasone 10 mg/mL INJ IM (19:31)
[2024-08-26] MEDS: ketorolac 30 mg/mL INJ IM (19:32)
[2024-08-26 19:33] VITALS: BP 122/78; PULSE 80; O2SAT 100
== END 2024-08-26 19:37 | disposition home or self-care (01) ==
PROVIDERS: Emergency Provider Nurse Practitioner Family; PCP Family Medicine
DX: M10.9 Gout, unspecified (principal)
CPT/HCPCS: 73610; 73630; 96372; 99284; J1100; J1885